=== PATIENT | female | born 1960 | race Two or more races ===

== ENCOUNTER 2023-12-23 12:48 | Emergency (ER) | payer MEDICAID, OTHER ==
[~2023-12-23] VITALS: Ht 154.9 cm; Wt 54.5 kg
[2023-12-23 14:10] VITALS: BP 136/79; PULSE 80; RESP 20; TEMP 98.4; O2SAT 95
[2023-12-23] MEDS: HYDROcodone-ACET 5/325MG TAB PO ONE (14:18)
[2023-12-23] MEDS ORDERED: ACET500T58 PO (14:53)
[2023-12-23] MEDS ORDERED: LIDO5DIS21 TOP (14:53)
[2023-12-23] MEDS ORDERED: CYCL-837 PO (14:53)
== END 2023-12-23 15:00 | disposition home or self-care (01) ==
LOC: EDBD 12:48 → ER 12:48
DX: S13.4XXA Sprain of ligaments of cervical spine, initial encounter (principal); R07.89 Other chest pain; M79.18 Myalgia, other site; V49.9XXA Car occupant (driver) (passenger) injured in unspecified traffic accident, initial encounter; Y93.89 Activity, other specified; Y92.488 Other paved roadways as the place of occurrence of the external cause; Y99.8 Other external cause status
CPT/HCPCS: 70450; 71046; 72125; 72170; 93005

== ENCOUNTER 2024-05-21 20:31 | Emergency (ER) | payer MEDICAID ==
[~2024-05-21] VITALS: Ht 167.6 cm; Wt 70.4 kg
[~2024-05-21 20:31] MED LIST: ACET500T58 PO; CYCL-837 PO; LIDO5DIS21 TOP
--- NOTE | 2024-05-21 21:26 | ED.PDOC ---
[place]. trauma (HPI) HPI Comments 64y F who presents to the ED via EMS for chief complaint of fall injury. 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 Pt states after fall, she started to have head and neck pain with associated pain located diffusely located across the R side of her body with noted pain by the R side of her head, torso, and R arm. Pt now in the ED, noted to have c-collar in place by EMS prior to arrival with no noted loss of consciousness upon EMS arrival and noted to ambulatory on scene. Pt in the ED, otherwise is [id number] and able to answer all questions and no noted injuries noted with no swelling, redness, bruising, noted. Pt otherwise has noted stable vitals in the ED. Pt denies any other symptoms at this time. 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 [employer] Notes Allergies: Coded Allergies: NO KNOWN ALLERGIES (Unverified , 12/23/23) Home Meds Active Scripts Cyclobenzaprine Hcl (Cyclobenzaprine Hcl) 5 Mg Tab, 1 TAB PO QPM for 30 Days, #30 TAB 0 Refills Prov:DESHAWN MILLAN NP 12/23/23 Lidocaine (LIDODERM 5% TOPICAL PATCH) 1 Patch Ph, 1 PATCH TOP DAILY for 30 Days, #30 PATCH 0 Refills Prov:DESHAWN MILLAN NP 12/23/23 Acetaminophen (Acetaminophen) 500 Mg Tab, 500 MG PO QIDP for 10 Days, #40 TAB 0 Refills Prov:DESHAWN MILLAN NP 12/23/23 Information Source: Patient, Emergency Med Personnel Mode of Arrival: EMS Past Medical History PAST MEDICAL HISTORY: Denies Surgical History: Denies all surgeries HOME HEALTH PHYSICAL THERAPIST History: No Pertinent HOME HEALTH PHYSICAL THERAPIST History Family History Family History: Reviewed,noncontributory to illness Social History Smoker: Non-Smoker Alcohol: Denies ETOH Use Drugs: Denies Drug Use Constitutional: denies: chills, diaphoresis, fatigue, fever, malaise, sweats, weakness, others EENTM: denies: blurred vision, double vision, ear bleeding, ear discharge, ear drainage, ear pain, ear ringing, eye pain, eye redness, hearing loss, mouth pain, mouth swelling, nasal discharge, nose bleeding, nose congestion, nose pain, photophobia, tearing, throat pain, throat swelling, voice changes, others Respiratory: denies: cough, hemoptysis, orthopnea, SOB at rest, shortness of breath, SOB with excertion, stridor, wheezing, others Cardiovascular: denies: chest pain, dizzy spells, diaphoresis, Dyspnea on exertion, edema, irregular heart beat, left arm pain, lightheadedness, palpitations, PND, syncope, others Gastrointestinal: denies: abdomen distended, abdominal pain, blood streaked bowels, constipated, diarrhea, dysphagia, difficulty swallowing, hematemesis, melena, nausea, poor appetite, poor fluid intake, rectal bleeding, rectal pain, vomiting, others Genitourinary: denies: abnormal vagina bleeding, burning, dyspareunia, dysuria, flank pain, frequency, hematuria, incontinence, pain, , vagina discharge, urgency, others Neurological: denies: dizziness, fainting, headache, left sided numbness, left sided weakness, numbness, paresthesia, pre-existing deficit, right sided numbness, right sided weakness, seizure, speech problems, tingling, tremors, wea kness, others Musculoskeletal: reports: joint pain (R side of body), muscle pain (R side by body); denies: back pain, gout, joint swelling, muscle stiffness, neck pain, others Integumetry: denies: bruises, change in color, change in hair/nails, dryness, laceration, lesions, lumps, rash, wounds, others Allergic/Immunocompromised: denies: Difficulty Healing, Frequent Infections, Hives, Itching, others Hematologic/Lymphatic: denies: anemia, blood clots, easy bleeding, easy bruising, swollen glands, others Endocrine: denies: excessive hunger, excessive sweating, excessive thirst, excessive urination, flushing, intolerance to cold, intolerance to heat, unexplained weight gain, unexplained weight loss, others Psychiatric: denies: anxiety, bipolar disorder, depression, hopeless, panic disorder, schizophrenia, sleepless, suicidal, others All Other Systems: Reviewed and Negative Physical Exam General Appearance: No Apparent Distress HEENT: None Neck: Full Range of Motion Respiratory: NOT DONE Cardiovascular: NOT DONE Breast Exam: Deferred Gastrointestinal: NOT DONE Genitalia: Deferred Pelvic: Deferred Rectal: Deferred Extremities: Other (pt has full range of motion, with c-collar in place) Neurologic: NOT DONE Cerebellar Function: NOT DONE Reflexes: NOT DONE Skin: NOT DONE Lymphatic: NOT DONE Was a procedure done? Was a procedure done?: No Differential Diagnosis Multiple Trauma: Closed Head Injury, Cardiac Injury, Abrasions, Contusion, Hematoma, Encephalopathy, N/A (musculoskeletal pain) Neck Injury: Cervical Sprain, Cervical Strain X-Ray, Labs, Meds, VS Vital Signs Date Time Temp Pulse Resp B/P (MAP) Pulse Ox O2 Delivery O2 Flow Rate FiO2 05/21/24 20:37 98.7 75 16 138/82 (100) 96 X-Ray, Labs, Meds, VS Comment Imaging: X-rays and CT scans were reviewed and interpreted by this provider, imaging shows no fractures and no pathological disease. Pending radiology review. Laboratory: Labs reviewed and interpreted by this provider. No significant abnormalities noted. Patient has prior medical visits reviewed. Med reconciliation performed Vital signs reviewed They are concerned for possible frozen and claims as patient has pictures of the client falling to the ground and then a 3rd democrat taking pictures the patient lying next to her client as she was states she fell to the floor with them. Time of 1ST Reevaluation: 21:55 Reevaluation 1ST: Unchanged Patient Education/Counseling: Diagnosis, Treatment, Need For Follow Up (Patient advised to follow-up in the emergency room in the next 24 to 48 hours if s ymptoms do not improve. Advised follow-up with PCP in the next 3 to 5 days. Patient verbalized understanding. ) Family Education/Counseling: No Family Present Departure 1 Departure Time of Disposition: 22:24 Impression: Primary Impression: Musculoskeletal pain Disposition: 01 HOME / SELF CARE / HOMELESS Condition: Fair e-Prescriptions Baclofen (Baclofen) 20 Mg Tab 1 TAB PO TID, #90 TAB 3 Refills Prov: MEGHA SANFORD PASTRYCOOK'S ASSISTANT 05/21/24 Naproxen (NAPROSYN TABLET) 500 Mg Tb 1 TAB PO BID, #60 TAB Prov: MEGHA SANFORD PASTRYCOOK'S ASSISTANT 05/21/24 Discharged With: Self Critical Care Note Critical Care Time?: No Stability Stability form required: No Heart Score Heart Score: Heart Score Response (Comments) Value History N/A 0 EKG N/A 0 Age N/A 0 Risk Factors N/A 0 Troponin N/A 0 Total 0 I personally scribed for MEGHA SANFORD ([email or web address]) on 05/21/24 at 21:26. Electronically submitted by Obey Mejia ([email or web address]). MEGHA SANFORD May 21, 2024 21:26
--- NOTE | 2024-05-21 22:18 | DVH ---
EXAM: XY CERVICAL SPINE 3V HISTORY: fall COMPARISON: None TECHNIQUE: AP, lateral, and odontoid views of the cervical spine were performed. FINDINGS: No cervical fracture, listhesis, or prevertebral soft tissue edema are identified. No significant de generative changes. IMPRESSION: Unremarkable radiographs of the cervical spine.
[2024-05-21] MEDS ORDERED: BACL20TA PO (22:25)
[2024-05-21] MEDS ORDERED: NAP500T PO (22:25)
[2024-05-22] MEDS: KETOROLAC TROMETH 30 MG/ML 1ML VIAL ONE (00:27)
[2024-05-22] MEDS: KETOROLAC TROMETH 30 MG/ML 1ML VIAL IM ONE (01:39)
[2024-05-22 02:30] VITALS: BP 124/68; PULSE 63; RESP 16; TEMP 97.6; O2SAT 96
== END 2024-05-22 02:30 | disposition home or self-care (01) ==
LOC: EDUNIT# 20:31 → ER 20:31 → EDBD 20:31 → ER 22:25
DX: M54.2 Cervicalgia (principal); M79.18 Myalgia, other site; M79.601 Pain in right arm; W01.0XXA Fall on same level from slipping, tripping and stumbling without subsequent striking against object, initial encounter; Y93.89 Activity, other specified; Y92.89 Other specified places as the place of occurrence of the external cause; Y99.8 Other external cause status
CPT/HCPCS: 72040; 96372; 99283; J1885